=== PATIENT | female | born 1980 | race Caucasian/White ===

== ENCOUNTER 2024-09-11 05:20 | Day surgery (SDC) | payer OTHER ==
[2024-09-10 09:58] VITALS: BMI 26.6
[2024-09-11 12:14] LABS: EPI CELLS 20 /uL (0-25.1); HYALINE CASTS 1 /uL (0-3.1); URINE APPEARANCE CLEAR; URINE BACTERIA 668 /uL (0-1359); URINE BILIRUBIN NEGATIVE (NEGATIVE); URINE COLOR YELLOW; URINE GLUCOSE (UA) NEGATIVE (NEGATIVE); URINE KETONE NEGATIVE (NEGATIVE); URINE LEUK ESTERASE 2+ (NEGATIVE); URINE NITRITE NEGATIVE (NEGATIVE); URINE PROTEIN NEGATIVE (NEGATIVE); URINE RBC 16 /uL (0-23.9); URINE UROBILINOGEN 0.2 mg/dL (0.2-1.0); URINE WBC 138 /uL (0-25.8)
[2024-09-11] MEDS ORDERED: PROPOFOL 20 ML ONE ×3 (13:05→14:28)
[2024-09-11] MEDS ORDERED: MIDAZOLAM HCL 2 MG/2 ML SINGLE DOSE VIAL ONE (13:05)
[2024-09-11] MEDS ORDERED: IBUPROFEN 400 MG TABLET (FP) PO PRN (15:09)
[2024-09-11] MEDS ORDERED: ONDANSETRON 4 MG/2 ML VIAL IVPUSH PRN (16:20)
[2024-09-11] MEDS ORDERED: PROMETHAZINE HCL 25 MG/1 ML VIAL IVPB PRN (16:20)
[2024-09-11] MEDS ORDERED: LACTATED RINGERS SOLUTION 1,000 ML IV SCH (16:30)
[2024-09-11] MEDS ORDERED: ACETAMINOPHEN INJECTION 100 ML ONE (18:56)
[2024-09-11] MEDS: ACETAMINOPHEN 1000 MG/100 ML BAG IVPB ONE (19:00)
[2024-09-11 19:59] VITALS: RESP 18
[2024-09-12] MEDS: ALPRAZolam 0.25 MG TABLET PO PRN (01:06)
[2024-09-12] MEDS: oxyCODONE HCL 5 MG TABLET PO PRN ×2 (03:15→14:12)
[2024-09-12 09:08] LABS: BASO % 0.1 % (0-2.0); EOS % 0.1 % (0-4.5); HEMATOCRIT 38.1 % (32.4-45.2); HEMOGLOBIN 13.1 GM/dL (10.7-15.3); MCH 29.7 pg (25.7-33.7); MCHC 34.4 g/dl (32.0-36.0); MEAN CELL VOLUME 86.6 fl (80-96); MEAN PLT VOLUME 7.7 fl (7.5-11.1); MONO % 4.5 % (3.8-10.2); NEUT % 78.3 % (42.8-82.8); PLATELET COUNT 304 10^3/uL (134-434); RDW 12.4 % (11.6-15.6); WHITE BLOOD COUNT 13.3 K/mm3 (4.0-10.0)
[2024-09-12 09:52] LABS: ALBUMIN 3.7 g/dl (3.4-5.0); BLOOD UREA NITROGEN 13.2 mg/dL (7-18); CALCIUM 9.1 mg/dL (8.5-10.1)
[2024-09-12 09:56] LABS: CREATININE 0.8 mg/dL (0.55-1.3)
[2024-09-12 09:57] LABS: BILIRUBIN,TOTAL 0.4 mg/dL (0.2-1); TOT PROT 6.8 g/dl (6.4-8.2)
[2024-09-12 14:09] VITALS: BP 128/76; PULSE 96; TEMP 98.2
[2024-09-12] MEDS: ACETAMINOPHEN 325 MG TABLET (FP) PO PRN (15:26)
== END 2024-09-12 18:46 | disposition home or self-care (01) ==
LOC: JASU-SURG 05:20 → JASUSAT 05:20 → J5S 19:48 → JASUSAT 09-12 18:46
PROVIDERS: ATTEND Obstetrics & Gynecology
PROC: 0UBC7ZX Excision of Cervix, Via Natural or Artificial Opening, Diagnostic (ICD-10-PCS; 2024-09-11)
PROC: 0U9L0ZZ Drainage of Vestibular Gland, Open Approach (ICD-10-PCS; principal; 2024-09-11 13:00)
DX: N87.1 Moderate cervical dysplasia (principal); N75.0 Cyst of Bartholin's gland
CPT/HCPCS: 36415; 80053; 81003; 81025; 85025; 87086; 88305-TC; 88307-TC; 88341-TC; 88342-TC; 94760; J0131